=== PATIENT | female | born 1985 | race Caucasian/White ===

== ENCOUNTER 2019-03-19 14:48 | Emergency (ER) | payer SELFPAY ==
[2019-03-19 14:50] VITALS: BP 133/86; PULSE 113; RESP 16; TEMP 38.2; O2SAT 100; BMI 21.6
--- NOTE | 2019-03-19 16:15 | ED.DEP ---
ED Disposition - Plan for ED Patient: Instructions: Dental Abscess Prescriptions: Naproxen [Naprosyn] 500 mg PO BID PRN #20 tablet Penicillin V Potassium 500 mg PO 4X/DAY #40 tablet Referrals: Lilibeth Landa MD [Primary Care Provider] -
--- NOTE | 2019-03-19 16:19 | ED.VISSUMM ---
- ER Visit Summary Date of Service: 03/19/19 Chief Complaint: Dental pain History of Present Illness: The patient is a 33 F presenting with dental pain. She states that she broke her tooth awhile ago. It started hurting 2 days ago. This morning she woke up with swelling right lower jaw. She took Tylenol at home. She denies any difficulty breathing or swallowing. She does not currently have a dentist. Denies other complaints. Physical Examination: Vitals are stable. Temperature 100.7. Alert no acute distress. HEENT exam widespread dental decay. Tenderness right lower molar. No surrounding fluctuance. No sublingual edema. Right mandibular swelling. Neck is supple. Lungs are clear and equal bilaterally. Heart is regular rate and rhythm. Extremities are unremarkable. Skin is warm and dry. No focal neurologic deficit. Remainder of exam is unremarkable. Emergency Department Course and Treatment: Patient is given penicillin, Naprosyn. She is given a dental referral list. Advised to follow-up with dentist. Advised return to ED for worsening complaints. Disposition: Discharge home Impression: Dental infection This note was generated with [employer] dictation software. It may contain incorrect words, spelling, and punctuation that were not noted in review of the chart prior to signing ED Disposition - Plan for ED Patient: Instructions: Dental Abscess Prescriptions: Naproxen [Naprosyn] 500 mg PO BID PRN #20 tab Prescription Printed Penicillin V Potassium 500 mg PO 4X/DAY #40 tab Prescription Printed Referrals: Lilibeth Landa MD [Primary Care Provider] -
[2019-03-19] MEDS: Penicillin Vk 250 MG Tablet 500 MG PO (16:20)
[2019-03-19] MEDS: Naproxen 500 MG Tablet PO (16:20)
[2019-03-19 17:14] VITALS: PULSE 78; RESP 14; O2SAT 98
== END 2019-03-19 17:15 | disposition home or self-care (01) ==
PROVIDERS: Emergency Provider Emergency Medicine; Family Provider Internal Medicine; PCP Internal Medicine
DX: K04.7 Periapical abscess without sinus (principal); Z72.0 Tobacco use
CPT/HCPCS: 99283

== ENCOUNTER 2022-02-02 11:45 | Emergency (ER) | payer SELFPAY ==
[2022-02-02 11:46] VITALS: BP 123/79; PULSE 130; RESP 15; TEMP 36.6; O2SAT 98; BMI 21.4
[2022-02-02 11:47] VITALS: BP 123/79; PULSE 130; RESP 15; TEMP 36.6; O2SAT 98
--- NOTE | 2022-02-02 12:17 | EX.ED.UPPERE ---
HPI History of Present Illness HPI Narrative: Patient presents with redness and swelling to her right bicep area that has been getting progressively worse over the last 5 days. Patient describes it as a tightness. Patient states it feels like there is a burning sensation. Patient states she has been using ice with some improvement. Patient denies any paresthesias or weakness. Patient denies any trauma or injury. Patient thinks she may have been bitten by a spider. Patient denies any fevers or chills. Chief Complaint: Bite Onset/Context/Timing Onset: Days (5) Context: Gradual Onset Timing: Continuous Quality of Pain: Burning Location: Right upper arm Worsened by: Nothing Relieved by: Ice Associated Symptoms Associated Symptoms: Negative for Parasthesia, Weakness or Loss of Funtion PFSH PFSH Home Medications cephalexin 500 mg capsule 500 mg PO Q6 #40 CAPSULES 02/02/22 [Rx Last Taken Unknown] Allergy/AdvReac Type Severity Reaction Status Date / Time codeine AdvReac Nausea Verified 02/02/22 11:47 Sulfa (Sulfonamide AdvReac Nausea Verified 02/02/22 11:47 Antibiotics) Surgical History (Updated 02/02/22 @ 12:[address] Mason Henry DO) History of section Social History Smoking Status: Current every day smoker tobacco type: e-cigarettes ROS ROS ED Constitutional Constitutional ED: Denies chills or fever(s) Eyes Eyes: Denies blurry vision or change in vision ENT ENT ED: Denies rhinorrhea or sore throat Cardiovascular Cardiovascular: Denies chest pain or palpitations Respiratory/Chest Respiratory/Chest: Denies cough or dyspnea Gastrointestinal Gastrointestinal: Denies nausea or vomiting Genitourinary Genitourinary ED: Denies dysuria or hematuria Musculoskeletal Musculoskeletal: Denies back pain or neck pain Integumentary Reports abscess and rash Neurologic Neurologic: Denies headache(s) or weakness Allergic/Immunologic Allergic/Immunologic ED: Denies mouth swelling or urticaria EXAM Physical Exam Const Vital Signs: 02/02/22 11:46 02/02/22 11:47 Temperature 97.8 F 97.8 F Temperature Source Temporal Temporal Pulse Rate 130 H 130 H Respiratory Rate 15 15 Blood Pressure 123/79 H 123/79 H Blood Pressure Mean 93 93 Pulse Ox 98 98 Oxygen Delivery Method Room Air Room Air Positive well nourished and well developed General Appearance ED: well developed and NAD HEENT Reports moist mucous membranes Neck full ROM Neuro oriented x3, CN's II-XII intact bilaterally, moves all extremities, no focal motor deficits and no sensory deficits noted Sensorium / Orientation: alert Motor Exam: strength 5/5 throughout Psych mental status grossly normal Skin Skin Narrative: There is edema, erythema, and induration over the anterior aspect of the right upper arm. There is no appreciable fluctuance. There is a small pustule noted over this area. There is no active discharge or drainage noted. Sensation was intact to light touch bilaterally in the upper extremities. Strength is 5/5 bilaterally in the upper extremities. Radial pulses are equal bilaterally. MDM MDM MDM Narrative Medical decision making narrative: Patient was given a dose of Keflex here. The area was cleaned with chlorhexidine prep. The area was anesthetized with 1% plain lidocaine locally. A small cruciate incision was made using an 11 blade scalpel. A moderate amount of purulent drainage was expressed. The wound was left open. Bacitracin dressing was applied. Patient tolerated the procedure well. Patient was instructed to use warm compresses. Patient was given a prescription for Keflex. Patient was instructed to follow-up with her primary care physician in 5 to 7 days. Patient understood and was agreeable with the plan. All questions were answered. Procedures Other Procedures Procedure(s): The right upper arm area was cleaned with chlorhexidine prep. The area was anesthetized with 1% plain lidocaine locally. A small cruciate incision was made using an 11 blade scalpel. A moderate amount of purulent drainage was expressed. The wound was left open. Bacitracin dressing was applied. Patient tolerated the procedure well. Discharge Plan Triage Chief Complaint: Bite ED Provider: Mason Henry Dx/Rx/DC Orders Clinical Impression: Abscess of right arm Instructions: ED Abscess Incision And Drainage Prescriptions: New cephalexin [cephalexin] 500 mg capsule 500 mg PO Q6 Qty: 40 0RF Primary Care Provider: Lilibeth Landa Referrals: Lilibeth Landa MD [Primary Care Provider] - 5-7 Days Disposition Disposition: Home, Self Care
[2022-02-02] MEDS: Cephalexin 500 MG Capsule PO (12:28)
[2022-02-02] MEDS: Lidocaine 1% (20 ml mdv) 20 ML Vial INFILT (14:37)
== END 2022-02-02 14:38 | disposition home or self-care (01) ==
PROVIDERS: Emergency Provider Emergency Medicine; PCP Internal Medicine; Visit Provider Emergency Medicine
DX: L02.413 Cutaneous abscess of right upper limb (principal); F17.210 Nicotine dependence, cigarettes, uncomplicated
CPT/HCPCS: 10060; 99283